=== PATIENT | male | born 1995 | race Caucasian/White ===

== ENCOUNTER 2019-01-02 20:12 | Emergency (ER) | payer OTHER ==
[~2019-01-02] VITALS: Ht 182.9 cm; Wt 77.1 kg
[2019-01-02 20:21] VITALS: BP 143/80
--- NOTE | 2019-01-02 20:21 | NUR ---
TO BED # 05 AMBULATORY
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
--- NOTE | 2019-01-02 21:20 | NUR ---
Dr. Vee examining patient.
--- NOTE | 2019-01-02 21:42 | NUR ---
Patient discharged with v/s stable. Written and verbal after care instructions given and explained. Patient verbalized understanding. Ambulatory with steady gait. All questions addressed prior to discharge. Advised to follow up with PMD.
[2019-01-02 21:43] VITALS: BP 143/80
== END 2019-01-02 21:42 | disposition home or self-care (01) ==
LOC: MED 20:12
DX: S02.609A Fracture of mandible, unspecified, initial encounter for closed fracture (principal); Y04.2XXA Assault by strike against or bumped into by another person, initial encounter; Y93.89 Activity, other specified; Y92.89 Other specified places as the place of occurrence of the external cause; Y99.8 Other external cause status
CPT/HCPCS: 99281